=== PATIENT | female | born 1950 | race Asian ===

== ENCOUNTER 2024-07-24 13:52 | Outpatient (RCR) | payer MEDICARE, BC, SELFPAY | END 2024-07-24 23:59 | disposition home or self-care (01) | LOC: RPT 13:52 | PROVIDERS: ATTENDING PHYSICIAN Dentist General Practice; FAMILY PHYSICIAN Family Medicine | DX: M79.12 Myalgia of auxiliary muscles, head and neck (principal); R29.3 Abnormal posture | CPT/HCPCS: 97010; 97110; 97112; 97140; 97161 ==

== ENCOUNTER 2024-08-28 09:49 | Outpatient (RCR) | payer MEDICARE, BC, SELFPAY | END 2024-08-28 23:59 | disposition home or self-care (01) | LOC: RPT 09:49 | PROVIDERS: ATTENDING PHYSICIAN Dentist General Practice; FAMILY PHYSICIAN Family Medicine | DX: M79.12 Myalgia of auxiliary muscles, head and neck (principal); R29.3 Abnormal posture; Z73.6 Limitation of activities due to disability | CPT/HCPCS: 97010; 97110; 97112; 97140 ==

== ENCOUNTER 2024-09-03 13:52 | Outpatient (RCR) | payer MEDICARE, BC, SELFPAY | END 2024-09-03 23:59 | disposition home or self-care (01) | LOC: RPT 13:52 | PROVIDERS: ATTENDING PHYSICIAN Dentist General Practice; FAMILY PHYSICIAN Family Medicine | DX: M79.12 Myalgia of auxiliary muscles, head and neck (principal); R29.3 Abnormal posture; Z73.6 Limitation of activities due to disability | CPT/HCPCS: 97010; 97112; 97140 ==